=== PATIENT | female | born 1985 | race African-American/Black ===

== ENCOUNTER 2017-11-10 17:36 | Emergency (ER) | payer MEDICAID ==
[~2017-11-10 17:36] MED LIST: PREN-66 PO
[2017-11-10 18:49] LABS: BASOPHILS % (AUTO) 0.8 % (0.0-5.0); HEMATOCRIT 34.6 % (36-48); LYMPHOCYTES % (AUTO) 31.3 % (21.0-51.0); MEAN CORPUSCULAR HEMOGLOBIN 27.6 pg (27.0-33.0); MEAN CORPUSCULAR HGB CONC 32.5 g/dL (32.0-36.0); MEAN CORPUSCULAR VOLUME 85.2 fL (79-99); MONOCYTES % (AUTO) 7.1 % (3.0-13.0); NEUTROPHILS % (AUTO) 57.8 % (40.0-77.0); PLATELET COUNT (AUTO) 270 K/uL (130-400); RED BLOOD CELL COUNT(AUTO) 4.06 MIL/uL (4.00-5.50); RED CELL DISTRIBUTION WIDTH 14.2 % (11.0-15.5); WHITE BLOOD COUNT (AUTO) 6.6 K/uL (4.8-10.8)
[2017-11-10] MEDS ORDERED: DiphenhydrAMINE HCL 50 MG/ML VIAL ONE (18:51)
[2017-11-10] MEDS ORDERED: SODIUM CHLORIDE 0.9% 1000ML 1,000 ML IV ONE (18:51)
[2017-11-10] MEDS ORDERED: PROCHLORPERAZINE EDISYLATE 10 MG/2 ML VIAL ONE (18:52)
[2017-11-10 18:56] LABS: APPEARANCE,URINE Clear (CLEAR); BILIRUBIN,URINE Negative (NEGATIVE); COLOR,URINE Yellow (YELLOW); GLUCOSE, URINE (UA) Negative (NEGATIVE); KETONES,URINE Negative (NEGATIVE); LEUKOCYTE ESTERASE ,URINE Negative (NEGATIVE); NITRATE,URINE Negative (NEGATIVE); OCCULT BLOOD,URINE Negative (NEGATIVE); PROTEIN,URINE Negative (NEGATIVE)
[2017-11-10 18:57] LABS: HCG,QUAL RESULT NEGATIVE (NEGATIVE)
[2017-11-10 19:06] LABS: CREATININE 0.7 mg/dL (0.5-1.5); POTASSIUM 3.9 mmol/L (3.5-5.1)
[2017-11-10 19:10] LABS: ALBUMIN 3.4 g/dL (3.5-5.0); BILIRUBIN,TOTAL 0.3 mg/dL (0.2-1.0); TOTAL PROTEIN, SERUM 7.8 g/dL (6.0-8.3)
== END 2017-11-10 19:57 | disposition home or self-care (01) ==
LOC: EDH 17:36
DX: G44.209 Tension-type headache, unspecified, not intractable (principal); R11.2 Nausea with vomiting, unspecified; M06.9 Rheumatoid arthritis, unspecified; Z88.6 Allergy status to analgesic agent; Z88.8 Allergy status to other drugs, medicaments and biological substances; Z98.51 Tubal ligation status; Z90.49 Acquired absence of other specified parts of digestive tract
CPT/HCPCS: 36415; 80053; 81003; 81025; 82150; 83690; 85025; 87804 ×2; 87880; 96361; 96374; 96375; 99284; J0780; J1200; J7030

== ENCOUNTER → 2019-03-22 | Outpatient (CLI) | payer MEDICAID | END | disposition home or self-care (01) | LOC: RAH 07:41 | PROVIDERS: ATTEND Family Medicine | DX: K76.0 Fatty (change of) liver, not elsewhere classified (principal) | CPT/HCPCS: 76700; 76856 ==

== ENCOUNTER → 2020-03-13 | Outpatient (CLI) | payer MEDICAID | END | disposition home or self-care (01) | LOC: RAH 10:59 | PROVIDERS: ATTEND Family Medicine | DX: R92.2 Inconclusive mammogram (principal); N64.4 Mastodynia | CPT/HCPCS: 77066 ==

== ENCOUNTER → 2021-09-24 | Outpatient (CLI) | payer MEDICAID | END | disposition home or self-care (01) | LOC: RAH 13:02 | PROVIDERS: ATTEND Family Medicine | DX: Z12.31 Encounter for screening mammogram for malignant neoplasm of breast (principal) | CPT/HCPCS: 77067 ==

== ENCOUNTER 2024-06-26 23:08 | Emergency (ER) | payer MEDICAID ==
[~2024-06-26] VITALS: Ht 160 cm; Wt 104.8 kg
--- NOTE | 2024-06-26 23:39 | NUR ---
PT PRESENTS POV TO ER SP GLF TO RIGHT SIDE, - LOC, - BT, - HEAD STRIKE. C/O GENERALIZED PAIN TO RIGHT SIDE OF BODY. A&OX4, GCS 15,M RESP EVEN AND UNLABORED ON RA. NO SIGNS OF ACUTE DISTRESS NOTED, VSS
[2024-06-27 01:30] VITALS: BP 121/81; PULSE 77; RESP 16; TEMP 98.4; O2SAT 100
--- NOTE | 2024-06-27 01:31 | ERN ---
ED Note History of Present Illness Stated Complaint: C/O PAIN TO RT SIDE AFTER FALL Chief Complaint: Mechanical Fall Time Seen by MD: 23:29 Time Seen by Midlevel: 23:29 Dictation: The patient is a 38-year-old female who presents to the emergency department with complaints of right elbow pain, right hip pain, right shoulder pain after a trip and fall. Patient reports she was on her phone and was walking through a sidewalk in she did not see the stepped causing her to fall on her right side. Patient denies any head trauma, LOC, nausea or vomiting. Allergies: Coded Allergies: ketorolac (Unverified Allergy, Severe, HIVES, 05/16/16) ondansetron (Unverified Allergy, Intermediate, HIVES, 05/16/16) tramadol (Unverified Allergy, Intermediate, HIVES, 05/16/16) No Known Drug Allergies (Verified Allergy, Unknown, 05/16/16) Home Meds Reported Medications [id number]/Iron Fumarate/FA/Dss ( 19 Tablet) 1 Each Tablet, 1 EACH PO DAILYDINNER, TAB 09/15/16 Past Medical History Past Medical History: Fibromyalgia, Other Additional Past Medical Hx: HX OF RA Surgical History: Cholecystectomy, Surgical History Other: TUBAL LIGATION LMP: Jun 09, 2024 RN Note Reviewed/Agreed w/PFSH: Yes Review of System Dictation Constitutional: Negative for fever,chills, and weight loss Eyes: Negative for injury, pain,redness, and discharge ENT: Negative for injury,pain or swelling Cardiovascular: Negative for chest pain, palpitations, and edema Respiratory: Negative for shortness of breath, cough, and wheezing, Abdomen/GI: Negative for abdominal pain, nausea, vomiting, diarrhea, and constipation Back: Negative for injury and pain : Negative for injury, bleeding and discharge MS/Extremity: Positive for right elbow pain, right knee pain, right shoulder pain Skin: Negative for rash, and discoloration Neuro: Negative for headache, weakness, numbness, tingling, and seizure Psych: Negative for suicide ideation, homicidal ideation, and hallucinations Initial Vital Sign VS Vital Signs Date Time Temp Pulse Resp B/P (MAP) Pulse Ox O2 Delivery O2 Flow Rate FiO2 06/26/24 23:11 97.9 80 20 126/67 99 Room Air 06/26/24 23:33 0 21 Physical Exam Dictation Vital Signs reviewed General Appearance: Alert, oriented x 3, no acute distress, well developed, nourished. Head and Face: non-traumatic. Eyes: PERRL, pink conjunctivas, eyelid no trauma, anterior chamber with arcus senilis. Ears: Pinnas intact and no signs of trauma or erythema ear canals clear and no discharge TM no erythema Nose: No discharge, no bleeding. Oropharynx: Mouth normal, tongue pink. pharynx clear,no erythema, tonsils no exudates, no abscesses noted, mucous membrane moist Neck: Supple, non-tender, no thyromegaly, no masses, no JVD, no bruits Breast:Deferred Chest:No tenderness, no crepitus, no paradoxical movement, no retractions Lungs:Clear, well-ventilated, symmetric, no rales, no wheezing, no rhonchi, no stridor, good breath sounds bilaterally Heart: Regular rate, regular rhythm, no murmur, no gallops Vascular: no peripheral edema, radial pulses 3+ bilaterally, dorsalis pedis pulses 3+ bilaterally Abdomen: Soft, positive bowel sounds, nondistended, no guarding, nontender, no rebound, no masses no hepatomegaly, no splenomegaly, no Lui's sign, no hernias. Rectal: Deferred Genital: Deferred Neurological: Normal speech, motor function intact, sensory function intact Musculoskeletal: Neck nontender, full range of motion, back nontender, full range of motion, Extremities: nontender, full range of motion , right elbow tenderness, right hip tenderness, right knee tenderness, full range of motion to all extremities, cap refill less than 2 seconds Skin: Color pink, dry, no turgor, no rash, no lacerations, no abrasions, no contusions. Lymphatic: Deferred Results (Laboratory/Radiology) Labs Reviewed?: Yes ED Course ED Course Orders Procedure Category Date Status Time Knee 3vws Rt RAD 06/26/24 Taken 23:35 Elbow Comp 3+Vws Rt RAD 06/26/24 Taken 23:35 Shoulder Comp 2+Vws Rt RAD 06/26/24 Taken 23:35 Hip Unilat 2-3vw Right RAD 06/26/24 Taken 23:35 Toe(S) 2+Vws Lt RAD 06/27/24 Taken 00:43 Vital Signs Date Time Temp Pulse Resp B/P (MAP) Pulse Ox O2 Delivery O2 Flow Rate FiO2 06/27/24 01:30 98.4 77 16 121/81 100 Room Air* 0 21 06/27/24 00:29 98.1 72 18 118/79 100 Room Air* 0 21 06/26/24 23:33 98.2 74 17 116/72 100 Room Air* 0 21 06/26/24 23:11 97.9 80 20 126/67 99 Room Air Medical Decision Making MDM The patient is a 38-year-old female who presents to the emergency department with complaints of right elbow pain, right hip pain, right shoulder pain after a trip and fall. Patient reports she was on her phone and was walking through a sidewalk in she did not see the stepped causing her to fall on her right side. Patient denies any head trauma, LOC, nausea or vomiting. X-ray showed no acute fractures or dislocation. Patient is ambulatory, full range of motion to all extremities, neurovascularly intact. Patient in no acute distress. Patient appeared upset that discharged and was taking so long and decided to walk out of the ER without discharge instructions. Differential diagnosis: Shoulder dislocation, hip fracture, knee sprain Need for hospitalization: Patient does not meet criteria for hospitalization. There are no social concerns with this patient. DX & DISP Disposition: Discharge Departure Impression: Primary Impression: Fall Additional Impressions: Contusion of hip, right, Contusion of elbow, right Condition: Stable Additional Instructions: Please follow up with your primary doctor in 1-2 days. FOLLOW-UP WITH PRIMARY CARE PROVIDER IN 1 TO 2 DAYS. TAKE MEDICATIONS DIRECTED HERE IN THE EMERGENCY ROOM. OKAY TO CONTINUE HOME MEDICATIONS UNLESS OTHERWISE DISCUSSED DURING YOUR VISIT IN THE EMERGENCY ROOM TODAY. RETURN TO YOUR NEAREST EMERGENCY ROOM IF SYMPTOMS WORSEN OR IF THERE IS NO IMPROVEMENT. CALL 911 IF YOU NEED IMMEDIATE ASSISTANCE. TAKE TYLENOL OR MOTRIN [id number] NEEDED AND IF NO CONTRAINDICATIONS ARE PRESENT. INCREASE ORAL HYDRATION. A WOUND CULTURE OR URINE CULTURE WAS ORDERED HERE IN THE EMERGENCY ROOM DEPARTMENT PLEASE FOLLOW-UP WITH PRIMARY CARE PROVIDER AND ADVISE THEM TO GET REPEAT PORTS FROM OUR FACILITY. IF YOU HAD ANY RENATA WRAP/SPLINTS THAT WERE APPLIED HERE, PLEASE DO NOT REMOVE THEM UNTIL YOU SEE YOUR PRIMARY CARE OR SPECIALTY. Referrals: BROOKE ANTOINE MD (PCP) Time of Disposition: 01:31 I have reviewed the case, and I agree with, Diagnosis and Plan CRISTINA ORELLANA [employer] [facility] June 27, 2024 01:31
--- NOTE | 2024-06-27 01:32 | NUR ---
PT NOTED TO BE WALKING TOWARDS THE NURSES STATION TO FIND JERICA EVANS. RN INFORMED PT THAT JERICA EVANS IS WORKING ON DC PAPERWORK AND WILL BE DISCHARGED SHORTLY. PT NOTED TO BE TALKING TO STAFF WITH AGGRESSIVE TONE. PT INFORMED THAT SHE NEEDS TO WAIT IN HER ASSIGNED ER ROOM AND IS NOT ABLE TO WALK INTO THE NURSES STATION DUE TO PATIENT PRIVACY. PT CONTINUED TO SPEAK TO STAFF IN A RUDE AND AGGRESSIVE TONE. PT ATTEMPTING TO WALK TO THE TRAUMA BAY, RN INFORMED PT THAT THE EXIT IS NOT IN THAT DIRECTION. PT RESPONDED "I DON'T CARE, YOU'RE RUDE SHIT". PT ELOPED AT THIS TIME, BUFFER COPPER MADE AWARE. INCIDENT WITNESSED BY EMILY [place]OUNTAIN WAITRESS/WAITER NURSE.
--- NOTE | 2024-06-27 09:13 | HMCIMG ---
Exam Type: ELBOW COMP 3+VWS RT Clinical Information: fall Comparison: None Findings: The bone examination is unremarkable. No fractures or dislocations are seen. No radiopaque foreign bodies are noted. Soft tissues are preserved. IMPRESSION: Normal examination.
--- NOTE | 2024-06-27 09:13 | HMCIMG ---
Exam Type: KNEE 3VWS RT Clinical Information: fall Comparison: None Findings: The bone examination is unremarkable. No fractures or dislocations are seen. No radiopaque foreign bodies are noted. Soft tissues are preserved. IMPRESSION: Normal examination.
--- NOTE | 2024-06-27 09:13 | HMCIMG ---
Exam Type: TOE(S) 2+VWS LT Clinical Information: GLF Comparison: None Findings: The bone examination is unremarkable. No fractures or dislocations are seen. No radiopaque foreign bodies are noted. Soft tissues are preserved. IMPRESSION: Normal examination.
--- NOTE | 2024-06-27 09:13 | HMCIMG ---
Exam Type: HIP UNILAT 2-3VW RIGHT Clinical Information: fall Comparison: None Findings: The bone examination is unremarkable. No fractures or dislocations are seen. No radiopaque foreign bodies are noted. Soft tissues are preserved. IMPRESSION: Normal examination.
--- NOTE | 2024-06-27 09:14 | HMCIMG ---
Exam Type: SHOULDER COMP 2+VWS RT Clinical Information: fall Comparison: None FINDINGS: The examination is unremarkable. Specifically, the glenohumeral and acromioclavicular joints are preserved. Visualized portions of the humerus, the scapula, and the clavicle as well as the upper ribcage are unremarkable. No pulmonary pathology is noted in the visualized portions of the upper lobe. The soft tissues are preserved. There are no other gross abnormalities. IMPRESSION: NORMAL EXAMINATION.
== END 2024-06-27 01:34 | disposition left against medical advice (07) ==
LOC: EDH 23:08
DX: S70.01XA Contusion of right hip, initial encounter (principal); S50.01XA Contusion of right elbow, initial encounter; M79.7 Fibromyalgia; Z88.5 Allergy status to narcotic agent; Z90.49 Acquired absence of other specified parts of digestive tract; Z98.51 Tubal ligation status; W18.39XA Other fall on same level, initial encounter; Y93.01 Activity, walking, marching and hiking; Y92.89 Other specified places as the place of occurrence of the external cause; Y99.8 Other external cause status
CPT/HCPCS: 73030; 73080; 73502; 73562; 73660; 99284